=== PATIENT | female | born 2000 ===

== ENCOUNTER 2023-03-22 10:32 | Inpatient (IN) | payer OTHER ==
[~2023-03-22] VITALS: Ht 170.2 cm; Wt 61.7 kg
[2023-04-17] MEDS ORDERED: PRENATAL TABLE1 EAC1 PO (06:57)
== END 2023-04-19 13:13 | disposition home or self-care (01) | DRG 807 ==
LOC: OB/GYN 04-16 10:32 → LDR 04-17 05:46 → OB/GYN 04-17 15:22
PROVIDERS: ADMIT Specialist; ATTEND Specialist
PROC: 10E0XZZ Delivery of Products of Conception, External Approach (ICD-10-PCS; principal; 2023-04-17)
PROC: 0W8NXZZ Division of Female Perineum, External Approach (ICD-10-PCS; 2023-04-17)
PROC: 4A1HXCZ Monitoring of Products of Conception, Cardiac Rate, External Approach (ICD-10-PCS; 2023-04-17)
DX: O80 Encounter for full-term uncomplicated delivery (principal); Z37.0 Single live birth; Z3A.40 40 weeks gestation of pregnancy; Z20.822 Contact with and (suspected) exposure to COVID-19